=== PATIENT | male | born 1950 | race African-American/Black ===

== ENCOUNTER 2016-10-25 03:49 | Emergency (ER) | payer OTHER ==
[2016-10-25 04:39] VITALS: BMI 28.5
[2016-10-25] MEDS ORDERED: MECLIZINE HCL 25 MG TABLET (FP) PO ONE (05:28)
[2016-10-25] MEDS ORDERED: MECLIZINE HCL 25 MG TABLET (FP) ONE (05:49)
[2016-10-25 06:06] LABS: BASOPHIL 0.3 % (0-2.0); MCH 28.3 pg (25.7-33.7); MCHC 33.9 g/dl (32.0-35.9); MEAN CELL VOLUME 83.5 fl (80-96); MEAN PLT VOLUME 9.1 fl (7.5-11.1); NEUTROPHILS 86.7 % (42.8-82.8); PLATELET COUNT 164 K/MM3 (134-434); RDW 13.1 % (11.9-15.9); WHITE BLOOD COUNT 10.3 K/mm3 (4.0-10.0)
--- NOTE | 2016-10-25 06:17 | PDOC ---
History of Present Illness - General Chief Complaint: Pain Stated Complaint: NECK PAIN, RINGING IN EAR Time Seen by Provider: 10/25/16 05:03 History Source: Patient Exam Limitations: No Limitations - History of Present Illness Initial Comments: 10/25/16 06:07 patient is a 66-year-old male with history of DVT with IVC filter, seizure disorder, small bowel obstruction, appendectomy, L knee orthoscopy, complaining of ringing in left ear since 1 month. He states that one month ago he had ringing in the right ear which was associated w/vertigo, but resolved after about a week. about the same time he developed pain which is 8/10 in his right face and it radiated to his temporal area. He states that he has ringing in his left ear which has not resolved with the medications prescribed to him. He went to ENT, his ears were irrigated and was given antibiotics, however no relief from his symptoms. He denies any chest pain, shortness of breath,fever, chills , nausea, vomiting. States he woke up this morning and felt like he was choking and he is concern about cancer because his brother had the same symptoms and was diagnosed with cancer. PMD:Dr. Arriaga PMHX: as above PSOCHX: neg etoh, ex smoker cig , neg drug. PFamHx: as above ALL: NKDA GENERAL/CONSTITUTIONAL: [No fever or chills. No weakness. No weight change.] HEAD, EYES, EARS, NOSE AND THROAT: [No change in vision. (+) ear pain (-) discharge. No sore throat.] CARDIOVASCULAR: [No chest pain or shortness of breath.] RESPIRATORY: [No cough, wheezing, or hemoptysis.] GASTROINTESTINAL: [No nausea, vomiting, diarrhea or constipation. No rectal bleeding.] GENITOURINARY: [No dysuria, frequency, or change in urination.] MUSCULOSKELETAL: [No joint or muscle swelling or pain. No neck or back pain.] SKIN AND BREASTS: [No rash or easy bruising.] NEUROLOGIC: [No headache, vertigo, loss of consciousness, or loss of sensation.] PSYCHIATRIC: [No depression or anxiety.] ENDOCRINE: [No increased thirst. No abnormal weight change.] HEMATOLOGIC/LYMPHATIC: [No anemia, easy bleeding, or history of blood clots.] ALLERGIC/IMMUNOLOGIC: [No hives or skin allergy. No latex allergy.] GENERAL: [The patient is awake, alert, and fully oriented, in no acute distress. ] HEAD: [Normal with no signs of trauma.] EYES: [Pupils equal, round and reactive to light, extraocular movements intact, sclera anicteric, conjunctiva clear.] ENT: [Ears normal, nares patent, oropharynx clear without exudates, uvula midline no swelling, no TRUCK ASSEMBLER. Moist mucous membranes., dentition intact] NECK: [Normal range of motion, supple without lymphadenopathy, (+) tenderness from the ankle of the jaw to the right neck, mild swelling to the right neck, no JVD, or masses.] LUNGS: [Breath sounds equal, clear to auscultation bilaterally. No wheezes, and no crackles.] HEART: [Regular rate and rhythm, normal S1 and S2 without murmur, rub.] ABDOMEN: [Soft, nontender, normoactive bowel sounds. No guarding, no rebound. No masses.] EXTREMITIES: [Normal range of motion, no edema. No clubbing or cyanosis. No cords, erythema, or tenderness.] NEUROLOGICAL: [Cranial nerves II through XII grossly intact. Normal speech, normal gait.] PSYCH: [Normal mood, normal affect.] SKIN: [Warm, Dry, normal turgor, no rashes or lesions noted.] Past History - Past Medical History Allergies/Adverse Reactions: Allergies Allergy/AdvReac Type Severity Reaction Status Date / Time No Known Allergies Allergy Verified 06/18/16 16:31 Home Medications: Ambulatory Orders Phenytoin Na Extended [Dilantin -] 200 mg PO BID 11/03/14 Primidone 250 mg PO AM 11/03/14 Primidone 500 mg PO HS 11/03/14 Cefdinir [Omnicef -] 300 mg PO BID 10/25/16 Anemia: No Asthma: No Cancer: No Cardiac Disorders: No CVA: No COPD: No CHF: No Dementia: No Diabetes: No GI Disorders: Yes (SBO) Disorders: No HTN: No Hypercholesterolemia: No Liver Disease: No Suicide Attempt (Hx): No Seizures: Yes Thyroid Disease: No - Surgical History Abdominal Surgery: Yes (BOWEL OBSTRUCTION SURGERY 1999) Appendectomy: Yes - Immunization History Immunization Up to Date: Yes - Psycho/Social/Smoking Cessation Hx Anxiety: No Suicidal Ideation: No Smoking Status: Yes Smoking History: Unknown if ever smoked Have you smoked in the past 12 months: No Number of Cigarettes Smoked Daily: 0 If you are a former smoker, when did you quit?: 2007 Hx Alcohol Use: No Drug/Substance Use Hx: No Substance Use Type: None Hx Substance Use Treatment: No *Physical Exam - Vital Signs Last Vital Signs Temp Pulse Resp BP Pulse Ox 99.5 F 102 H 20 161/60 96 10/25/16 04:37 10/25/16 04:37 10/25/16 04:37 10/25/16 04:37 10/25/16 04:37 ED Treatment Course - LABORATORY CBC & Chemistry Diagram: 10/25/16 05:52 10/25/16 05:52 - Medications Given in the ED: ED Medications Discontinued Medications Generic Name Dose Route Start Last Admin Trade Name Freq PRN Reason Stop Dose Admin Meclizine HCl 25 mg 10/25/16 05:28 10/25/16 05:52 Antivert - PO 10/25/16 05:29 25 mg ONCE ONE Administration Medical Decision Making - Medical Decision Making 10/25/16 06:07 patient is a 66-year-old male with history of DVT with IVC filter, seizure disorder, small bowel obstruction, appendectomy, L knee orthoscopy, complaining of ringing in left ear since 1 month, with ringing in right ear that is now resolved but has pain to the left side jaw and neck. will r/o out inflammatory process, crp, esr, cbc, bmp. cta neck and ct head antivert, percocet 2 tab po reassess Endorsed to on coming med level pending CT *DC/Admit/Observation/Transfer Diagnosis at time of Disposition: Clicking tinnitus of both ears, Neck pain on right side
[2016-10-25] MEDS ORDERED: OXYCODONE/APAP 5/325MG COMBO TABLET PO ONE (06:31)
[2016-10-25] MEDS ORDERED: OXYCODONE/APAP 5/325MG COMBO TABLET ONE (06:48)
[2016-10-25 06:57] LABS: C-REACTIVE PROTEIN 1.6 MG/DL (0.00-0.3); CALCIUM 8.9 mg/dL (8.5-10.1); CREATININE 0.9 mg/dL (0.7-1.3)
[2016-10-25 07:48] VITALS: TEMP 98.6
--- NOTE | 2016-10-25 09:51 | PDOC ---
*Physical Exam - Vital Signs Last Vital Signs Temp Pulse Resp BP Pulse Ox 98.6 F 93 H 18 138/88 96 10/25/16 07:44 10/25/16 07:44 10/25/16 07:44 10/25/16 07:44 10/25/16 07:44 - Physical Exam General Appearance: Yes: Nourished HEENT: positive: MARIAN, Normal Voice, TMs Normal, Sinus Tenderness, Other (right side maxillary and soft tissue lateral neck, up to worship region with pain that is throbbing. ). negative: Muffled/Hoarse voice, Pharyngeal Erythema, Tonsillar Exudate, Tonsillar Erythema, Nasal Congestion, TM Bulging, TM Dull, TM Erythema, Excessive drooling Neck: positive: Tender, Decreased range of motion, Tender lateral (right side). negative: Stridor Respiratory/Chest: positive: Lungs Clear Cardiovascular: positive: Regular Rate Gastrointestinal/Abdominal: positive: Normal Bowel Sounds, Flat, Soft Extremity: positive: Normal Inspection Integumentary: positive: Normal Color, Dry, Warm Neurologic: positive: Fully Oriented, Alert ED Treatment Course - LABORATORY CBC & Chemistry Diagram: 10/25/16 05:52 10/25/16 05:52 - ADDITIONAL ORDERS Additional order review: Laboratory Results 10/25/16 05:52 Sodium 139 Potassium 4.3 Chloride 106 Carbon Dioxide 22 Anion Gap 11 BUN 14 D Creatinine 0.9 Random Glucose 105 Calcium 8.9 C-Reactive Protein 1.6 H 10/25/16 05:52 RBC 5.30 MCV 83.5 MCHC 33.9 RDW 13.1 MPV 9.1 Neutrophils % 86.7 H Lymphocytes % 5.2 L D Monocytes % 7.8 Eosinophils % 0.0 D Basophils % 0.3 - Medications Given in the ED: ED Medications Discontinued Medications Generic Name Dose Route Start Last Admin Trade Name Freq PRN Reason Stop Dose Admin Meclizine HCl 25 mg 10/25/16 05:28 10/25/16 05:52 Antivert - PO 10/25/16 05:29 25 mg ONCE ONE Administration Oxycodone/Acetaminophen 2 combo 10/25/16 06:31 10/25/16 06:50 Percocet 5/325 - PO 10/25/16 06:32 2 combo ONCE ONE Administration Medical Decision Making - Medical Decision Making 10/25/16 07:48 I have received report from TONA Daniels regarding this patient. Pt's initial chief complaint: right side head, jaw and neck pain for one month Pt's work up completed prior to sign out: lab work, Pt treatment given from prior staff: percocet and antivert; pain is numbed but ringing in ear remains Pt plan to be completed: plan for CT of soft tissue neck and head with contrast pending. Dispo: pending 10/25/16 10:[address] of the neck. Pt without any significant abcess formations, no compression, no infection process found. CT results discussed with pt and suggest to follow up with ENT and dental TANYA as well as continue ABT and pain medicaions. *DC/Admit/Observation/Transfer Diagnosis at time of Disposition: Clicking tinnitus of both ears, Neck pain on right side - Discharge Dispostion Admit: No - Prescriptions Prescriptions: Tramadol HCl [Ultram -] 50 mg PO Q8H #10 tablet MDD 3 - Referrals Referrals: Rodrigo Arriaga MD [Primary Care Provider] - - Patient Instructions Printed Discharge Instructions: Jaw Pain: It's Not Just Stress Additional Instructions: Discharge instructions 1. Please follow up with your primary physician within the next few days and explain that you have been seen here in the Emergency Room for right side jaw pain. As discussed prior to discharge, please complete the antibiotics that ENT physicians started you on and follow up with them within the week. As discussed prior to discharge, please follow up with your dental team within one week for evaluation of the recent tooth extraction and tooth pain that may be the main issue for the right jaw pain 2. If you experience any worsening of symptoms, such as fever, drainage, signs of infection, please return to the ER 3. Rest, avoid chewing difficult foods. Take pain medications as needed. 4. Drink plenty of water - Post Discharge Activity
[2016-10-25 11:11] VITALS: BP 135/79; PULSE 90
== END 2016-10-25 11:11 | disposition home or self-care (01) ==
LOC: JER 03:49
DX: H93.13 Tinnitus, bilateral (principal); M54.2 Cervicalgia; G40.909 Epilepsy, unspecified, not intractable, without status epilepticus; Z86.718 Personal history of other venous thrombosis and embolism
CPT/HCPCS: 36415; 70450-TC; 70491-TC; 80048; 85025; 85651; 86140; 99283-25

== ENCOUNTER 2018-09-23 16:00 | Emergency (ER) | payer OTHER ==
[2018-09-23 16:07] VITALS: BP 149/72; PULSE 81; TEMP 98.6; BMI 27.9
--- NOTE | 2018-09-23 16:51 | PDOC ---
History of Present Illness - General Chief Complaint: Pain, Acute Stated Complaint: RIGHT KNEEE PAIN Time Seen by Provider: 09/23/18 16:17 History Source: Patient Exam Limitations: No Limitations - History of Present Illness Initial Comments: 09/23/18 16:46 Came with for evaluation of acute on chronic right knee pain. was bowling last Tuesday when his right knee "gave out" and caused a twisting type injury at that time. Since that time has had some intermittent swelling but denies instability. has had knee pain for many years and left knee needed meniscus repair some many years ago after a workman's comp related injury. 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 09/23/18 17:05 Occurred: reports: last week Severity: reports: mild Pain Location: reports: lower extremity (right knee ) Method of Injury: Yes: fall Loss of Consciousness: no loss of consciousness Associated Symptoms (Fall): denies symptoms Past History - Travel Traveled outside of the country in the last 30 days: No Close contact w/someone who was outside of country & ill: No - Past Medical History Allergies/Adverse Reactions: Allergies Allergy/AdvReac Type Severity Reaction Status Date / Time No Known Allergies Allergy Verified 09/23/18 16:03 Home Medications: Ambulatory Orders Phenytoin Na Extended [Dilantin -] 200 mg PO BID 11/03/14 Primidone 250 mg PO AM 11/03/14 Primidone 500 mg PO HS 11/03/14 Anemia: No Asthma: No Cancer: No Cardiac Disorders: No CVA: No COPD: No CHF: No Dementia: No Diabetes: No GI Disorders: Yes (SBO) Disorders: No HTN: No Hypercholesterolemia: No Liver Disease: No Seizures: Yes Thyroid Disease: No - Surgical History Abdominal Surgery: Yes (BOWEL OBSTRUCTION SURGERY 1999) Appendectomy: Yes - Immunization History Immunization Up to Date: Yes - Suicide/Smoking/Psychosocial Hx Smoking Status: Yes Smoking History: Never smoked Have you smoked in the past 12 months: No Number of Cigarettes Smoked Daily: 0 If you are a former smoker, when did you quit?: 2007 Hx Alcohol Use: No Drug/Substance Use Hx: No Substance Use Type: None Hx Substance Use Treatment: No Review of Systems - Review of Systems Able to Perform ROS?: Yes Is the patient limited Togolese proficient: Yes Constitutional: Yes: Symptoms Reported, See HPI HEENTM: Yes: See HPI. No: Symptoms Reported Respiratory: No: Symptoms reported ABD/GI: No: Symptoms Reported Musculoskeletal: Yes: Symptoms Reported, See HPI, Joint Pain (with pre-tibial pain ), Joint Swelling, Joint Stiffness (right knee ) Integumentary: No: Symptoms Reported Neurological: Yes: Symptoms reported All Other Systems: Reviewed and Negative *Physical Exam - Vital Signs Last Vital Signs Temp Pulse Resp BP Pulse Ox 98.6 F 81 16 149/72 99 09/23/18 16:03 09/23/18 16:03 09/23/18 16:03 09/23/18 16:03 09/23/18 16:03 - Physical Exam General Appearance: Yes: Nourished, Appropriately Dressed, Apparent Distress HEENT: positive: MARIAN, Normal ENT Inspection, TMs Normal, Pharynx Normal Neck: positive: Supple. negative: Tender Respiratory/Chest: positive: Lungs Clear Gastrointestinal/Abdominal: positive: Soft. negative: Tender Extremity: positive: Normal Capillary Refill, Normal Inspection, Normal Range of Motion (with some crepitus with flexion, no ballottemeis mobile without crepitoff. Neurovascular intact to foot, no swelling or tenderness to calf or evidence of), Tender Integumentary: positive: Normal Color, Dry, Warm Neurologic: positive: frozen food selector II-XII NML intact, Fully Oriented, Alert, Normal Response, Motor Strength 5/5, Abnormal Cranial NS Moderate Sedation - Procedure Monitoring Vital Signs: Procedure Monitoring Vital Signs Temperature 98.6 F 09/23/18 16:03 Pulse Rate 81 09/23/18 16:03 Respiratory Rate 16 09/23/18 16:03 Blood Pressure 149/72 09/23/18 16:03 O2 Sat by Pulse Oximetry (%) 99 09/23/18 16:03 Progress Note - Progress Note Progress Note: Acute on chronic right knee pain, will recommend at orthopedist for further evaluation *DC/Admit/Observation/Transfer Diagnosis at time of Disposition: Right knee sprain Qualifiers: Encounter type: initial encounter Involved ligament of knee: unspecified ligament Qualified Code(s): S83.91XA - Sprain of unspecified site of right knee , initial encounter - Discharge Dispostion Disposition: HOME Condition at time of disposition: Stable Decision to Admit order: No - Referrals Referrals: Rodrigo Arriaga MD [Primary Care Provider] - Miguel Chua DO [Staff Physician] - - Patient Instructions Printed Discharge Instructions: DI for Knee Sprain Additional Instructions: Rest, ice to area on and off for 15 minutes 4-6 times a day Avoid heavy lifting or exercise until pain and swelling is resolved or until further directed Keep area highly elevated to reduce swelling Use splints/Andrés wrap as directed Followup with orthopedist in one to 2 days if not improving, if significantly improved may wait one week for followup with orthopedist May use ibuprofen 2-200 mg tablets every 6 hours as needed for pain - Post Discharge Activity
== END 2018-09-23 17:23 | disposition home or self-care (01) ==
LOC: JERFT 16:00
DX: S83.8X1A Sprain of other specified parts of right knee, initial encounter (principal); X50.1XXA Overexertion from prolonged static or awkward postures, initial encounter; Y93.54 Activity, bowling; Y92.39 Other specified sports and athletic area as the place of occurrence of the external cause; Y99.8 Other external cause status; Z86.69 Personal history of other diseases of the nervous system and sense organs
CPT/HCPCS: 99281-25

== ENCOUNTER 2019-03-26 23:30 | Emergency (ER) | payer OTHER ==
[2019-03-26 23:35] VITALS: BMI 28.5
[2019-03-27] MEDS ORDERED: ACETAMINOPHEN 500 MG TABLET (FP) PO ONE (02:20)
[2019-03-27] MEDS ORDERED: DIPHTH,PERTUSS(ACELL),TET 0.5 ML DISP.SYRIN IM ONE ×2 (02:20→03:16)
[2019-03-27] MEDS ORDERED: DIPHTH,PERTUSS(ACELL),TET VAC 0.5 ML VIAL IM ONE (02:22)
--- NOTE | 2019-03-27 02:43 | PDOC ---
History of Present Illness - General Chief Complaint: Injury Stated Complaint: INJURY (RT HAND) Time Seen by Provider: 03/27/19 02:18 - History of Present Illness Initial Comments: 03/27/19 03:08 68yo M hx epilepsy presents from home c/o injury to L 2nd digit. Pt was drilling plexiglass and drilled through and through the finger tip of his L 2nd digit, from the palmar side out the fingernail. Bleeding stopped with pressure, pt does not believe any foreign objects entered. Endorses pain; did not take any pain medications. Denies numbness/tingling, dizziness, other injuries. Unknown last tetanus. PCP - Dr Arriaga Past History - Past Medical History Allergies/Adverse Reactions: Allergies Allergy/AdvReac Type Severity Reaction Status Date / Time No Known Allergies Allergy Verified 03/26/19 23:36 Home Medications: Ambulatory Orders Phenytoin Na Extended [Dilantin -] 200 mg PO BID 11/03/14 Amoxicillin/Potassium Clav [Augmentin 875-125 Tablet] 1 each PO BID 5 Days #10 tablet 03/27/19 Phenobarbital 250 mg PO AM 03/27/19 Phenobarbital 500 mg PO HS 03/27/19 Anemia: No Asthma: No Cancer: No Cardiac Disorders: No CVA: No COPD: No CHF: No Dementia: No Diabetes: No GI Disorders: Yes (SBO) Disorders: No HTN: No Hypercholesterolemia: No Liver Disease: No Seizures: Yes Thyroid Disease: No - Surgical History Abdominal Surgery: Yes (BOWEL OBSTRUCTION) Appendectomy: Yes Orthopedic Surgery: Yes (L KNEE) - Immunization History Immunization Up to Date: No - Suicide/Smoking/Psychosocial Hx Smoking Status: Yes Smoking History: Never smoked Have you smoked in the past 12 months: No Number of Cigarettes Smoked Daily: 0 If you are a former smoker, when did you quit?: 2009 Hx Alcohol Use: No Drug/Substance Use Hx: No Substance Use Type: None Hx Substance Use Treatment: No Review of Systems - Review of Systems Comments:: 03/27/19 05:42 Constitutional: Negative for chills, fever, fatigue. HENT: Negative for sore throat, rhinorrhea, congestion. Eyes: Negative for visual disturbance. Respiratory: Negative for shortness of breath, cough, and wheezing. Cardiovascular: Negative for chest pain, palpitations, and leg swelling. Gastrointestinal: Negative for abdominal pain, blood in stool, constipation, diarrhea, nausea, and vomiting. Genitourinary: Negative for dysuria, flank pain, and hematuria. Musculoskeletal: Positive for L 2nd finger puncture injury. Negative for myalgias, back pain, and neck pain. Skin: Negative for rash. Neurological: Negative for light-headedness, dizziness, syncope, weakness, numbness and headaches. Psychiatric/Behavioral: Negative for behavioral problems and confusion. *Physical Exam - Vital Signs Last Vital Signs Temp Pulse Resp BP Pulse Ox 98.3 F 96 H 18 151/76 97 03/26/19 23:32 03/26/19 23:32 03/26/19 23:32 03/26/19 23:32 03/26/19 23:32 - Physical Exam Comments: 03/27/19 05:40 Gen: Alert, NAD, comfortable-appearing. HEENT: PERRL, EOMI, MMM, NCAT. No conjunctival pallor. Sclera are non-icteric. CV: Regular rate and rhythm. No murmurs, rubs, or gallops. PULM: No resp distress. CTAB, no wheezes, rales, or rhonchi. ABD: soft, NT/ND, no rebound tenderness or guarding, no CVA tenderness. BACK: No TTP of c/t/l-spine. No step-offs or deformities. MSK: No bony deformities. 2+ pulses in all extremities. L 2nd digit: 1mm puncture wound on palmar fingertip and on fingernail (appears to be directly through), nonbleeding, no pus or drainage, no foreign objects visualized. No erythema or warmth. Mild TTP. No bony deformity. Sensation intact to light touch. <2sec cap refill. Full flexion and extension of all joints. NEURO: AAOx3. PERRL. No gross CN deficits. Strength and sensation grossly intact throughout. EXTREMITIES: No cyanosis. No clubbing. No edema. No calf tenderness. PSYCH: Normal mood and thought pattern. SKIN: Warm and dry. Normal capillary refill. No rashes. No jaundice. ED Treatment Course - RADIOLOGY Radiology Studies Ordered: Category Date Time Status FINGER(S) LEFT [RAD] Stat Radiology 03/27/19 02:19 Ordered Medical Decision Making - Medical Decision Making 03/27/19 03:10 68yo M hx epilepsy presents from home with puncture to distal L 2nd digit through fingernail from drill. 1mm puncture wound on palmar fingertip and fingernail. Hemodynamically stable, minimal pain, neurovascularly intact. Unknown last tetanus. -Tylenol for pain -Tetanus -XR 2nd digit to r/o fx/open fx -Augmentin -Dispo: d/c home w/PCP f/u and Augmentin x5 days XR read: no fx seen. Pt feeling better s/p tylenol. 1st does Augmentin given here. Wound soaked in betadine and water. Gauze placed. Will dc home with supportive treatment and Augmentin. Return precautions given. Pt understands all dc instructions and all questions were answered. *DC/Admit/Observation/Transfer Diagnosis at time of Disposition: Puncture wound - Discharge Dispostion Disposition: HOME Condition at time of disposition: Improved Decision to Admit order: No - Prescriptions Prescriptions: Amoxicillin/Potassium Clav [Augmentin 875-125 Tablet] 1 each PO BID 5 Days #10 tablet - Referrals Referrals: Rodrigo Arriaga MD [Primary Care Provider] - - Patient Instructions Printed Discharge Instructions: DI for Puncture Wound Additional Instructions: You have been seen in the Emergency Department for your finger puncture wound. Your X-Ray shows no fracture or foreign objects. Your wound has been cleaned and wrapped. If you experience pain, you can take Tylenol or Ibuprofen as directed on the medication bottle, but do not exceed 3g of Ibuprofen or 4g of Tylenol a day. We have prescribed you an antibiotic, Augmentin - take it twice a day for 5 days as instructed on the bottle. Keep the wound clean and dry. Follow-up with your primary care doctor within 1 week. Return to the ED immediately if you experience fever, worsening pain not controlled by over the counter medications, redness or burning or tingling or pus around the wound, or any other new or worsening symptom. - Post Discharge Activity
--- NOTE | 2019-03-27 02:45 | PDOC ---
Attending Attestation - Resident Resident Name: Mounika Dennis - ED Attending Attestation I have performed the following: I have examined & evaluated the patient, The case was reviewed & discussed with the resident, I agree w/resident's findings & plan - HPI HPI: 03/27/19 03:51 68-year-old male with left second finger pain after a drill passed through it - Physicial Exam PE: 03/27/19 03:57 GENERAL: Awake, in no acute distress HEAD: No signs of trauma EYES: ENT:clear without exudates. Moist mucosa NECK: Normal ROM, LUNGS:. Normal work of breathing. HEART: Regular rate and rhythm, ABDOMEN: Soft, nondistended CHEST WALL: BACK: No midline tenderness. EXTREMITIES:. Through and through puncture wound involving the left second distal phalanx, exit is through the nail bed, capillary refill intact NEUROLOGICAL: Alert, SKIN: Warm, Dry - Medical Decision Making 03/27/19 03:57 68-year-old male with left finger through and through puncture wound X-ray shows no obvious fracture Plan for tetanus update when necessary, wound cleansed with Betadine and Augmentin
[2019-03-27] MEDS ORDERED: ACETAMINOPHEN 325 MG TABLET (FP) ONE (03:16)
[2019-03-27] MEDS ORDERED: AMOX TR/POT CLAV 875MG/125MG TABLETS (FP) PO ONE (03:28)
[2019-03-27] MEDS ORDERED: AMOX TR/POT CLAV 875MG/125MG TABLETS (FP) ONE (04:02)
[2019-03-27 04:11] VITALS: BP 139/85; PULSE 79; TEMP 97.9
== END 2019-03-27 04:11 | disposition home or self-care (01) ==
LOC: JER 23:30
PROC: 3E0234Z Introduction of Serum, Toxoid and Vaccine into Muscle, Percutaneous Approach (ICD-10-PCS; principal; 2019-03-26)
DX: S61.331A Puncture wound without foreign body of left index finger with damage to nail, initial encounter (principal); J43.9 Emphysema, unspecified; W45.8XXA Other foreign body or object entering through skin, initial encounter; Y93.89 Activity, other specified; Y92.009 Unspecified place in unspecified non-institutional (private) residence as the place of occurrence of the external cause
CPT/HCPCS: 73140-TC-LT-FY; 90471; 99282-25

== ENCOUNTER 2019-07-04 22:42 | Inpatient (IN) | payer OTHER ==
--- NOTE | 2019-07-04 23:16 | PDOC ---
History of Present Illness - General Chief Complaint: Pain, Acute Stated Complaint: ABD/PAIN Time Seen by Provider: 07/04/19 23:16 History Source: Patient Exam Limitations: No Limitations - History of Present Illness Initial Comments: 69 year old male with PMH seizure disorder, RLE DVT (s/p IVC filter 2/2 seizure medication), venous insufficiency, diverticulitis, appendectomy, multiple SBO, abdominal adhesion removal presented to ED for LLQ pain x1 day. Pt reported his pain is constant, nonradiating, no alleviating or aggravating factors. Pt admitted to normal bowel movement this AM, denied blood, denied straining. Pt denied fever, vomiting, chills, abdominal distension, blood in stool, dysuria. Pt reported >10 years ago he had the adhesion surgery and since then he has not had an SBO, but todays symptoms feel similar to prior. Past History - Past Medical History Allergies/Adverse Reactions: Allergies Allergy/AdvReac Type Severity Reaction Status Date / Time No Known Allergies Allergy Verified 07/04/19 22:51 Home Medications: Ambulatory Orders Phenytoin Na Extended [Dilantin -] 200 mg PO BID 11/03/14 Phenobarbital 250 mg PO AM 03/27/19 Phenobarbital 500 mg PO HS 03/27/19 Levetiracetam 500 mg PO DAILY 07/05/19 GI Disorders: Yes (SBO) Seizures: Yes - Surgical History Abdominal Surgery: Yes (BOWEL OBSTRUCTION) Appendectomy: Yes Orthopedic Surgery: Yes (L KNEE) - Immunization History Immunization Up to Date: No - Psycho Social/Smoking Cessation Hx Smoking Status: Yes Smoking History: Never smoked Have you smoked in the past 12 months: No Number of Cigarettes Smoked Daily: 0 If you are a former smoker, when did you quit?: 2009 Information on smoking cessation initiated: No Hx Alcohol Use: No Drug/Substance Use Hx: No Substance Use Type: None Hx Substance Use Treatment: No Review of Systems - Review of Systems Able to Perform ROS?: Yes Comments:: ROS General: denied fever, chills, generalized weakness. HEENT: denied sore throat, rhinorrhea, ear pain. Cardiovascular: denied chest pain, palpitations, syncope, diaphoresis. Respiratory: denied shortness of breath, cough, sputum production, hemoptysis. Gastrointestinal: admitted to abdominal pain. denied nausea, vomiting, diarrhea , constipation, blood in stool. Genitourinary: denied dysuria, increased urinary frequency, hematuria, urinary incontinence, flank pain. Back: denied back pain. Musculoskeletal: denied joint pain, muscle pain, joint swelling. Neurological: denied headache, dizziness, numbness, tingling, weakness. Integumentary: denied rash, laceration, abrasion. Hematologic/Lymphatic: denied bruising or bleeding. PE Constitutional: Well-nourished, Well-developed, appearing stated age. HEENT: head is normocephalic, atraumatic. EOMI. PERRLA. Neck: supple. Full ROM. Cardiovascular: regular heart rhythm. no murmurs. no pericardial friction rub. Respiratory: clear to auscultation bilaterally. no crackles, rhonchi or wheezing. no stridor. Gastrointestinal: soft. mild distension. decreased bowel sounds. tenderness to palpation of LLQ. no rebound, guarding, masses. Rectal: hemorrhoids. good rectal tone. soft stool in vault. Extremities: peripheral pulses intact. no lower extremity edema. Neurological: CN 2-12 grossly intact. moves all four extremities. Psych: awake, alert, oriented x3. follows commands. answers questions appropriately. *Physical Exam - Vital Signs Last Vital Signs Temp Pulse Resp BP Pulse Ox 97.9 F 98 H 20 137/76 96 07/04/19 22:51 07/04/19 22:51 07/04/19 22:51 07/04/19 22:51 07/04/19 22:51 ED Treatment Course - LABORATORY CBC & Chemistry Diagram: 07/05/19 00:29 07/05/19 01:07 Medical Decision Making - Medical Decision Making 69 year old male with above PMH presented to ED for LLQ pain x1 day. Initial Vital Signs Temp Pulse Resp BP Pulse Ox 97.9 F 98 H 20 137/76 96 07/04/19 22:51 07/04/19 22:51 07/04/19 22:51 07/04/19 22:51 07/04/19 22:51 Afebrile. No tachycardia. No tachypnea. Mild hypertension. No hypoxia on room air. Labs ordered: CBC, CMP, mag, lactic acid, lipase, coags, AED level Imaging ordered: CT abdomen/pelvis Medications ordered: normal saline bolus 1000 cc once, tylenol IV EKG performed at 0101: rate 81, regular rhythm, normal axis, normal intervals, no acute ST changes. 07/05/19 01:57 CBC WBC 9.3 K/mm3 (4.0-10.0) 07/05/19 00:29 RBC 5.61 M/mm3 (4.00-5.60) H 07/05/19 00:29 Hgb 15.8 GM/dL (11.7-16.9) 07/05/19: Hct 48.1 % (35.4-49) 07/05/19:29 MCV 85.7 fl (80-96) 07/05/19 00:29 MCH 28.2 pg (25.7-33.7) 07/05/19: MCHC 32.9 g/dl (32.0-35.9) 07/05/19: RDW 13.9 % (11.9-15.9) 07/05/19: MPV 9.4 fl (7.5-11.1) 07/05/19 00:29 Absolute Neuts (auto) 7.5 K/mm3 (1.5-8.0) 07/05/19 00:29 Neutrophils % 80.2 % (42.8-82.8) 07/05/19 00: Lymphocytes % 9.6 % (8-40) D 07/05/19: Monocytes % 9.8 % (3.8-10.2) 07/05/19 00:29 Eosinophils % 0.1 % (0-4.5) D 07/05/19:29 Basophils % 0.3 % (0-2.0) 07/05/19 00:29 Nucleated RBC % 0 % (0-0) 07/05/19 00:29 No leukocytosis. No anemia. Lab reported PLT clumped and unable to be calculated. Urine Test Results Urine Color Yellow 07/05/19 00:53 Urine Appearance Clear 07/05/19 00:53 Urine pH 5.5 (5.0-8.0) 07/05/19 00:53 Ur Specific [place] 1.023 (1.010-1.035) 07/05/19 00:53 Urine Protein Negative (NEGATIVE) 07/05/19 00:53 Urine Glucose (UA) Negative (NEGATIVE) 07/05/19 00:53 Urine Ketones Trace (NEGATIVE) H 07/05/19 00:53 Urine Blood Negative (NEGATIVE) 07/05/19 00:53 Urine Nitrite Negative (NEGATIVE) 07/05/19 00:53 Urine Bilirubin Negative (NEGATIVE) 07/05/19 00:53 Ur Leukocyte Esterase Negative (NEGATIVE) 07/05/19 00:53 Negative for UTI. Negative for hematuria. Negative for proteinuria. CMP Sodium 138 mmol/L (136-145) 07/05/19 01:07 Potassium 4.1 mmol/L (3.5-5.1) 07/05/19 01:07 Chloride 107 mmol/L (98-107) 07/05/19 01:07 Carbon Dioxide 23 mmol/L (21-32) 07/05/19 01:07 Anion Gap 8 MMOL/L (8-16) 07/05/19 01:07 BUN 16.3 mg/dL (7-18) 07/05/19 01:07 Creatinine 0.9 mg/dL (0.55-1.3) 07/05/19 01:07 Est GFR (CKD-EPI)AfAm 99.24 07/05/19 01:07 Est GFR (CKD-EPI)NonAf 85.63 07/05/19 01:07 Random Glucose 120 mg/dL (74-106) H 07/05/19 01:07 Lactic Acid 0.9 mmol/L (0.4-2.0) 07/05/19 00:29 Calcium 8.3 mg/dL (8.5-10.1) L 07/05/19 01:07 Magnesium 2.2 mg/dL (1.8-2.4) 07/05/19 01:07 Total Bilirubin 0.4 mg/dL (0.2-1) 07/05/19 01:07 AST 19 U/L (15-37) 07/05/19 01:07 ALT 25 U/L (13-61) 07/05/19 01:07 Alkaline Phosphatase 148 U/L (45-117) H 07/05/19 01:07 Creatine Kinase 80 U/L (26-308) 07/05/19 01:07 Troponin I < 0.02 ng/ml (0.00-0.05) 07/05/19 01:07 Total Protein 6.9 g/dl (6.4-8.2) 07/05/19 01:07 Albumin 3.7 g/dl (3.4-5.0) 07/05/19 01:07 Lipase 36 U/L (73-393) L 07/05/19 01:07 No electrolyte abnormalities. No ZONIA. No transaminitis. Troponin undetectable. Lipase wnl. No lactic acidosis. 07/05/19 04:57 Radiology called to report partial SBO around adhesion site. right kidney 2.4 cm lesion, cyst vs malignancy, recommend F/U CT with IV contrast. hiatal hernia. Pt to be admitted for partial bowel obstruction. 07/05/19 05:19 Patient Name: MORGAN GOYAL THIS IS A PRELIMINARY REPORT FROM [facility]TRY MACHINE OPERATOR DATE OF SERVICE: 2019-07-05 03:37:09 IMAGES: 521 EXAM: CT ABDOMEN WITHOUT CONTRAST AND CT PELVIS W/O CONTR HISTORY: 69-Year-Old Male With Previous History Of Appendectomy Presents With With Left Lower Quadrant Abdominal Pain And Previous History Of History Of a Small Bowel Obstruction. COMPARISON: None. FINDINGS: Lack of intravenous contrast limits this exam. Lack of oral contrast limits this exam. Mild basilar atelectasis scarring or pneumonia. Mild cardiomegaly with calcified coronary artery arteriosclerosis. Mild hepatomegaly. Noncontrast evaluation gallbladder pancreas spleen appear unremarkable. Right adrenal nonspecific 2 x 2 x 1 cm nodule with a nonspecific Hounsfield unit density measurement of 17 may be benign or malignant on axial image 53 coronal image 49. Left adrenal 1.8 x 1.6 x 1.4 cm nodule on axial image 51 and coronal image 54 with a Hounsfield unit density measurement of 7 consistent with a benign adrenal adenoma. In the midportion of the right kidney renal cortex there is a nonspecific hyperdense 2.4 x 2 x 2 cm mass on axial image 69 coronal image 36 and sagittal image 42 suspicious for complex hyperdense proteinaceous benign or malignant cystic mass. No nephrolithiasis or hydronephrosis. Filter in inferior vena cava. The inferior vena cava upstream to the filter is diminutive and may be atrophic. Moderate calcified arteriosclerosis of the abdominal and pelvic arterial vasculature. Small hiatal hernia. Mild nonspecific 1 cm circumferential lower esophageal wall thickening may be due to acute esophagitis and chronic reflux esophagitis or Hawk's esophagitis cannot be excluded. Noncontrast evaluation stomach and proximal small bowel appear unremarkable. Evidence of anterior abdominal hernia repair material with no intervening fat between the hernia repair material and anterior intra-abdominal bowel loops may be due to adhesions. Moderately abnormally dilated thick-walled loops of small bowel in the right lower quadrant most likely due to infectious or inflammatory enteritis with associated ileus partial small bowel obstruction transition zone anastomotic suture in the right lower quadrant may be due to adhesions. The terminal ileum is decompressed. The appendix is surgically absent and not identified. Diverticulosis. Bladder and prostate appear unremarkable. Mild right convex lumbar scoliosis. Moderate degenerative disc disease in lower lumbar spine. Moderate degenerative joint disease of the lower lumbar facets. Midline anterior abdominal and pelvic subcutaneous scarring. IMPRESSION: Evidence of anterior abdominal hernia repair material with no intervening fat between the hernia repair material and anterior intra-abdominal bowel loops may be due to adhesions. Moderately abnormally dilated thick-walled loops of small bowel in the right lower quadrant most likely due to infectious or inflammatory enteritis with associated ileus partial small bowel obstruction transition zone anastomotic suture in the right lower quadrant may be due to adhesions. If clinically indicated recommend correlation with a follow-up CT Scan Of The Abdomen And Pelvis With Oral Contrast And With IV contrast. Right kidney renal cortex nonspecific hyperdense 2.4 cm mass suspicious for complex hyperdense proteinaceous benign or malignant cystic mass. Mild basilar atelectasis scarring or pneumonia. Right adrenal nonspecific 2 cm nodule may be benign or malignant. If clinically indicated follow-up outpatient MRI Abdomen Adrenal Gland Protocol may be needed. A verbal report of the abnormal results were discussed with Dr. Marin by Dr. Daily 4:56 AM ET July 05, 2019. Patient This CT exam was performed using one or more of the following dose reduction techniques: automated exposure control, adjustment of the mA and/or kV according to patient size, use of iterative reconstruction technique. One or more of the following dose reduction techniques were used: automated exposure control, adjustment of the mA and/or kV according to patient size, use of iterative reconstructive technique. THIS DOCUMENT HAS BEEN ELECTRONICALLY SIGNED Alex Daily MD 07/05/2019 05:09 [employer] Please call Imaging Pre School Manager [phone] with questions. Alex Daily MD Clinicians - Please contact Imaging Pre School Manager with further questions at [phone] Patients - Please contact your Ordering Provider with questions. 07/05/19 05:30 Sign out given to IM resident over the phone. Pt to be admitted under Dr. Carreon' care. Discharge - Discharge Information Problems reviewed: Yes Clinical Impression/Diagnosis: Partial small bowel obstruction, Kidney mass - Admission Yes - Follow up/Referral - Patient Discharge Instructions - Post Discharge Activity
[2019-07-04] MEDS ORDERED: SODIUM CHLORIDE 1,000 ML IV STA (23:30)
[2019-07-04] MEDS ORDERED: ACETAMINOPHEN 1000 MG/100 ML VIAL (NON FORMULARY) IVPB ONE (23:30)
[2019-07-04] MEDS ORDERED: ACETAMINOPHEN INJECTION 100 ML IVPB ONE (23:38)
--- NOTE | 2019-07-05 00:02 | PDOC ---
Attending Attestation - Resident Resident Name: TaniaAshleya - ED Attending Attestation I have performed the following: I have examined & evaluated the patient, The case was reviewed & discussed with the resident, I agree w/resident's findings & plan - HPI HPI: 07/05/19 04:59 see resident hpi - Physicial Exam PE: 07/05/19 04:59 agree with resident exam - Medical Decision Making 07/05/19 04:59 69-year-old male with abdominal pain CT scan consistent with partial SBO Plan for admission to medical service, surgical consultation
[2019-07-05] MEDS ORDERED: morphine CARPU-JECT 4 MG/1 ML DISP.SYRIN IVPUSH ONE (01:09)
[2019-07-05 01:14] LABS: INR 1.22 (0.83-1.09); PROTHROMBIN TIME (PATIENT) 14.4 SEC (9.7-13.0)
[2019-07-05] MEDS ORDERED: MORPHINE SULFATE 2 MG/ML VIAL ONE (01:32)
[2019-07-05 01:36] LABS: BASO % 0.3 % (0-2.0); EOS % 0.1 % (0-4.5); HEMATOCRIT 48.1 % (35.4-49); HEMOGLOBIN 15.8 GM/dL (11.7-16.9); LYMPH % 9.6 % (8-40); MCH 28.2 pg (25.7-33.7); MCHC 32.9 g/dl (32.0-35.9); MEAN CELL VOLUME 85.7 fl (80-96); MEAN PLT VOLUME 9.4 fl (7.5-11.1); MONO % 9.8 % (3.8-10.2); NEUT % 80.2 % (42.8-82.8); RBC 5.61 M/mm3 (4.00-5.60); RDW 13.9 % (11.9-15.9); WHITE BLOOD COUNT 9.3 K/mm3 (4.0-10.0)
[2019-07-05 01:49] LABS: PH,URINE 5.5 (5.0-8.0); URINE APPEARANCE CLEAR; URINE BILIRUBIN NEGATIVE (NEGATIVE); URINE COLOR YELLOW; URINE GLUCOSE (UA) NEGATIVE (NEGATIVE); URINE KETONE TRACE (NEGATIVE); URINE LEUK ESTERASE NEGATIVE (NEGATIVE); URINE NITRITE NEGATIVE (NEGATIVE); URINE PROTEIN NEGATIVE (NEGATIVE)
[2019-07-05 02:01] LABS: ALBUMIN 3.7 g/dl (3.4-5.0); ALK PHOS 148 U/L (45-117); ANION GAP 8 MMOL/L (8-16); BILIRUBIN,TOTAL 0.4 mg/dL (0.2-1); BLOOD UREA NITROGEN 16.3 mg/dL (7-18); CALCIUM 8.3 mg/dL (8.5-10.1); CHLORIDE 107 mmol/L (98-107); CO2 23 mmol/L (21-32); CREATININE 0.9 mg/dL (0.55-1.3); GLUCOSE,RANDOM 120 mg/dL (74-106); LIPASE 36 U/L (73-393); MAGNESIUM 2.2 mg/dL (1.8-2.4); POTASSIUM 4.1 mmol/L (3.5-5.1); SGOT/AST 19 U/L (15-37); SGPT/ALT 25 U/L (13-61); SODIUM 138 mmol/L (136-145); TOT PROT 6.9 g/dl (6.4-8.2)
--- NOTE | 2019-07-05 05:28 | PN ---
Teaching Attending Note Name of Resident: Barbara Shook ATTENDING PHYSICIAN STATEMENT I saw and evaluated the patient. I reviewed the resident's note and discussed the case with the resident. I agree with the resident's findings and plan as documented. SUBJECTIVE: 69 year old male with PMH seizure disorder, RLE DVT (s/p IVC filter), venous insufficiency, diverticulitis, appendectomy, multiple SBO, abdominal adhesion removal c/o LLQ abdominal pain x1 day. Pt reported his pain is constant, nonradiating, no alleviating or aggravating factors. Pt admitted to normal bowel movement one day ago OBJECTIVE: Last Vital Signs Temp Pulse Resp BP Pulse Ox 98.3 F 84 16 126/56 L 95 07/04/19 23:10 07/04/19 23:10 07/04/19 23:10 07/04/19 23:10 07/04/19 23:10 GENERAL: Well developed, well nourished. Awake and alert. No acute distress. HEENT: Normocephalic, atraumatic. PERRLA, EOMI. No conjunctival pallor. Sclera are non- icteric. Moist mucous membranes. Oropharynx is clear. NECK: Supple. Full ROM. No JVD. Carotid pulses 2+ and symmetric, without bruits. No thyromegaly. No lymphadenopathy. CARDIOVASCULAR: Regular rate and rhythm. No murmurs, rubs, or gallops. Distal pulses are 2+ and symmetric. PULMONARY: No evidence of respiratory distress. Lungs clear to auscultation bilaterally. No wheezing, rales or rhonchi. ABDOMINAL: Soft. Mild mid abdominal tenderness.Large scar noted MUSCULOSKELETAL Normal range of motion at all joints. No bony deformities or tenderness. No CVA tenderness. EXTREMITIES: No cyanosis. No clubbing. No edema. No calf tenderness. SKIN: Warm and dry. Normal capillary refill. No rashes. No jaundice. PSYCHIATRIC: Cooperative. Good eye contact. Appropriate mood and affect. Abnormal Lab Results 07/05/19 07/05/19 07/05/19 00:29 00:53 00:53 RBC 5.61 H PT with INR 14.40 H INR 1.22 H Random Glucose Calcium Alkaline Phosphatase Lipase Urine Ketones Trace H 07/05/19 01:07 RBC PT with INR INR Random Glucose 120 H Calcium 8.3 L Alkaline Phosphatase 148 H Lipase 36 L Urine Ketones Imaging reviewed ct of abdomen/pelvis Evidence of anterior abdominal hernia repair material with no intervening fat between the hernia repair material and anterior intra-abdominal bowel loops may be due to adhesions. Moderately abnormally dilated thick-walled loops of small bowel in the right lower quadrant most likely due to infectious or inflammatory enteritis with associated ileus partial small bowel obstruction transition zone anastomotic suture in the right lower quadrant may be due to adhesions. If clinically indicated recommend correlation with a follow-up CT Scan Of The Abdomen And Pelvis With Oral Contrast And With IV contrast. Right kidney renal cortex nonspecific hyperdense 2.4 cm mass suspicious for complex hyperdense proteinaceous benign or malignant cystic mass. Mild basilar atelectasis scarring or pneumonia. Right adrenal nonspecific 2 cm nodule may be benign or malignant. ASSESSMENT AND PLAN: 69-year-old male with acute onset of abdominal pain found to have ileus, partial small bowel obstruction. Adhesions may be the culprit of SBO this case, Especially with history of multiple SBO's in the past and had adhesions lysis. Finding of incidental right adrenal nodule. MedSurg N.p.o. IV fluid hydration NG tube with intermittent decompression Follow-up official abdominal CT read Morphine IV as needed for pain control Monitor electrolytes closely and correct PRN Zofran IV as needed if nausea Surgery evaluation Heparin subcu for DVT prophylaxis Outpatient work-up for incidental 2.4 right renal cortex nodule
--- NOTE | 2019-07-05 06:03 | HP ---
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 According to patient, the pain is similar to his previous SBO symptoms. He describes the pain as sharp, constant, nonradiating, with no alleviating or aggravating factors. He denies any associated fever, chills, nausea, vomiting, or change in her BM or appetite. Per patient, he had a soft non bloody bowel movement yesterday morning around 9:30 am and has not passed gas or had a bowel movement since. ER course was notable for: (1) CBC and CMP only remarkable for an elevated RBC 5.9 and BG 120. PT/INR 14.4 , 1.22 (2) Neg UA, CT abdomen and pelvis partial SBO around adhesion site. right kidney 2.4 cm lesion, cyst vs malignancy, 2 cm adrenal lesion. recommend F/U CT with IV contrast. hiatal hernia. (3) Ofirmev, morphine, 1L bolus NS Recent Travel: none PAST MEDICAL HISTORY: as above PAST SURGICAL HISTORY: as above Social History: Smokinppd for 43 yrs but quit 8 yrs ago Alcohol: denies Drugs: denies Allergies No Known Allergies Allergy (Verified 07/04/19 22:51) HOME MEDICATIONS: Home Medications Medication Instructions Recorded Phenytoin Na Extended [Dilantin -] 200 mg PO BID 11/03/14 Phenobarbital 250 mg PO AM 03/27/19 Phenobarbital 500 mg PO HS 03/27/19 Levetiracetam 500 mg PO DAILY 07/05/19 REVIEW OF SYSTEMS CONSTITUTIONAL: Absent: fever, chills, diaphoresis, generalized weakness, malaise, loss of appetite, weight change HEENT: Absent: rhinorrhea, nasal congestion, throat pain, throat swelling, difficulty swallowing, mouth swelling, ear pain, eye pain, visual changes CARDIOVASCULAR: Absent: chest pain, syncope, palpitations, irregular heart rate, lightheadedness , peripheral edema RESPIRATORY: Absent: cough, shortness of breath, dyspnea with exertion, orthopnea, wheezing, stridor, hemoptysis GASTROINTESTINAL:abdominal pain Absent: abdominal distension, nausea, vomiting, diarrhea, constipation, melena, hematochezia GENITOURINARY: Absent: dysuria, frequency, urgency, hesitancy, hematuria, flank pain, genital pain MUSCULOSKELETAL: Absent: myalgia, arthralgia, joint swelling, back pain, neck pain SKIN: Absent: rash, itching, pallor HEMATOLOGIC/IMMUNOLOGIC: Absent: easy bleeding, easy bruising, lymphadenopathy, frequent infections ENDOCRINE: Absent: unexplained weight gain, unexplained weight loss, heat intolerance, cold intolerance NEUROLOGIC: Absent: headache, focal weakness or paresthesias, dizziness, unsteady gait, seizure, mental status changes, bladder or bowel incontinence PSYCHIATRIC: Absent: anxiety, depression, suicidal or homicidal ideation, hallucinations. PHYSICAL EXAMINATION Vital Signs - 24 hr 07/04/19 07/04/19 07/05/19 22:51 23:10 05:42 Temperature 97.9 F 98.3 F 97.9 F Pulse Rate 98 H Pulse Rate [ 84 76 Left Apical] Respiratory 20 16 17 Rate Blood Pressure 137/76 Blood Pressure 126/56 L 136/78 [Right Arm] O2 Sat by Pulse 96 95 95 Oximetry (%) GENERAL: Awake, alert, and fully oriented, in mild distress. HEAD: Normal with no signs of trauma. EYES: Pupils equal, round and reactive to light, extraocular movements intact, sclera anicteric, conjunctiva clear. No lid lag. EARS, NOSE, THROAT: oropharynx clear without exudates. dry mucous membranes. NECK: Normal range of motion, supple without lymphadenopathy, JVD, or masses. LUNGS: Breath sounds equal, clear to auscultation bilaterally. No wheezes, and no crackles. No accessory muscle use. HEART: Regular rate and rhythm, normal S1 and S2 without murmur, rub or gallop. ABDOMEN: Soft, diffuse tenderness but more significant in LLQ, not distended, normoactive bowel sounds, no guarding, no rebound, no masses. No hepatomegaly or splenomegaly. MUSCULOSKELETAL: Normal range of motion at all joints. No bony deformities or tenderness. No CVA tenderness. UPPER EXTREMITIES: 2+ pulses, warm, well-perfused. No cyanosis. No clubbing. No peripheral edema. LOWER EXTREMITIES: 2+ pulses, warm, well-perfused. No calf tenderness. No peripheral edema. PSYCHIATRIC: Cooperative. Good eye contact. Appropriate mood and affect. Laboratory Results - last 24 hr 07/05/19 07/05/19 07/05/19 00:29 00:29 00:29 WBC 9.3 RBC 5.61 H Hgb 15.8 Hct 48.1 MCV 85.7 MCH 28.2 MCHC 32.9 RDW 13.9 Plt Count No Result Required. MPV 9.4 Absolute Neuts (auto) 7.5 Neutrophils % 80.2 Lymphocytes % 9.6 D Monocytes % 9.8 Eosinophils % 0.1 D Basophils % 0.3 Nucleated RBC % 0 PT with INR INR Sodium Cancelled Potassium Cancelled Chloride Cancelled Carbon Dioxide Cancelled Anion Gap Cancelled BUN Cancelled Creatinine Cancelled Est GFR (CKD-EPI)AfAm Cancelled Est GFR (CKD-EPI)NonAf Cancelled Random Glucose Cancelled Lactic Acid 0.9 Calcium Cancelled Magnesium Cancelled Total Bilirubin Cancelled AST Cancelled ALT Cancelled Alkaline Phosphatase Cancelled Creatine Kinase Troponin I Total Protein Cancelled Albumin Cancelled Lipase Cancelled Urine Color Urine Appearance Urine pH Ur Specific [place] Urine Protein Urine Glucose (UA) Urine Ketones Urine Blood Urine Nitrite Urine Bilirubin Urine Urobilinogen Ur Leukocyte Esterase 07/05/19 07/05/19 07/05/19 00:53 00:53 01:07 WBC RBC Hgb Hct MCV MCH MCHC RDW Plt Count MPV Absolute Neuts (auto) Neutrophils % Lymphocytes % Monocytes % Eosinophils % Basophils % Nucleated RBC % PT with INR 14.40 H INR 1.22 H Sodium 138 Potassium 4.1 Chloride 107 Carbon Dioxide 23 Anion Gap 8 BUN 16.3 Creatinine 0.9 Est GFR (CKD-EPI)AfAm 99.24 Est GFR (CKD-EPI)NonAf 85.63 Random Glucose 120 H Lactic Acid Calcium 8.3 L Magnesium 2.2 Total Bilirubin 0.4 AST 19 ALT 25 Alkaline Phosphatase 148 H Creatine Kinase 80 Troponin I < 0.02 Total Protein 6.9 Albumin 3.7 Lipase 36 L Urine Color Yellow Urine Appearance Clear Urine pH 5.5 Ur Specific [place] 1.023 Urine Protein Negative Urine Glucose (UA) Negative Urine Ketones Trace H Urine Blood Negative Urine Nitrite Negative Urine Bilirubin Negative Urine Urobilinogen 1.0 Ur Leukocyte Esterase Negative ASSESSMENT/PLAN: 69 year old male with PMH seizure disorder, RLE DVT (s/p IVC filter 2/2 seizure medication), venous insufficiency, diverticulitis, appendectomy, 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 admitted for partial SBO. Partial SBO 2/2 adhesions based on previous hx NPO bowel rest NGT if vomiting morphine for pain repeat CT for reeval Surgical consult Dr Berrios as he has seen him in the past. D5NS @83cc/hr. D5 is added due to NPO status monitor lytes and replete PRN zofran IV for nausea /vomiting if present Seizure disorder resuming home meds monitor seizure med levels ordered Incidental renal and adrenal lesion can follow as o/p for further evaluation DVT hep subQ Visit type - Emergency Visit Emergency Visit: Yes ED Registration Date: 07/05/19 Care time: The patient presented to the Emergency Department on the above date and was hospitalized for further evaluation of their emergent condition. - New Patient This patient is new to me today: Yes Date on this admission: 07/05/19 - Critical Care Critical Care patient: No ATTENDING PHYSICIAN STATEMENT I saw and evaluated the patient. I reviewed the resident's note and discussed the case with the resident. I agree with the resident's findings and plan as documented. SUBJECTIVE: OBJECTIVE: ASSESSMENT AND PLAN:
[2019-07-05] MEDS: DEXTROSE 5%-LACTATED RINGERS 1,000 ML IV SCH ×2 (06:14→15:06)
[2019-07-05 07:35] VITALS: BMI 27.7
[2019-07-05] MEDS ORDERED: PHENobarbital SODIUM 65 MG/1 ML VIAL IVPB ONE (08:00)
--- NOTE | 2019-07-05 08:51 | CONSULT ---
- Consultation REQUESTING PROVIDER: CONSULT REQUEST: We have been asked to surgically evaluate this patient for sbo PCP:Romi Siddiqui NP HISTORY OF PRESENT ILLNESS: 69yo presented to the ED with complaints of diffuse abd pain x [address] abd/pel showed partial SBO. Pt denies n/v, fever, chills. Pt states his last BM was yesterday morning before the pain started. Pt denies any BM or flatus since. Pt states he was last in the hospital a couple years ago for SBO and was treated conservatively for sbo with NGT. Pt did have lysis of adhesions about 20 years ago for sbo in the past. Pt states the abd pain is about the same since yesterday. PMHx: Epilepsy PSHx: Hernia repair, Ex-lap with JAEL, Appendectomy Home Medications Medication Instructions Recorded Phenytoin Na Extended [Dilantin -] 200 mg PO BID 11/03/14 Phenobarbital 250 mg PO AM 03/27/19 Phenobarbital 500 mg PO HS 03/27/19 Levetiracetam 500 mg PO DAILY 07/05/19 Allergies Allergy/AdvReac Type Severity Reaction Status Date / Time No Known Allergies Allergy Verified 07/04/19 22:51 REVIEW OF SYSTEMS: CONSTITUTIONAL: Absent: fever, chills, diaphoresis, generalized weakness, malaise, loss of appetite, weight change CARDIOVASCULAR: Absent: chest pain, syncope, palpitations, irregular heart rate, lightheadedness , peripheral edema RESPIRATORY: Absent: cough, shortness of breath, dyspnea with exertion, wheezing, stridor, hemoptysis GENITOURINARY: Absent: dysuria, frequency, urgency, hesitancy, hematuria, flank pain, genital pain MUSCULOSKELETAL: Absent: myalgia, arthralgia, joint swelling, back pain, neck pain SKIN: Absent: rash, itching, pallor PHYSICAL EXAM: GENERAL: Awake, alert, and fully oriented, in no acute distress. HEAD: Normal with no signs of trauma. EYES: PERRL, sclera anicteric, conjunctiva clear. NECK: Normal ROM, supple without lymphadenopathy, JVD, or masses. LUNGS: Clear to auscultation bilat anteriorly. No wheezes, and no crackles. No accessory muscle use. HEART: Regular rate and rhythm. No murmurs ABDOMEN: Soft, Moderately distended, with moderate diffuse abd pain, healed ex- lap and appendectomy incisions, no guarding, no rebound, no masses. No organomegaly. MUSCULOSKELETAL: Normal ROM at all joints. No bony deformities or tenderness. No CVA tenderness. NEUROLOGICAL: Normal speech, gait not observed. PSYCH: Cooperative. Good eye contact. Appropriate mood and affect. SKIN: Warm, dry, normal turgor, no rashes or lesions noted. Vital Signs Temperature 98.0 F 07/05/19 07:24 Pulse Rate 74 07/05/19 07:24 Respiratory Rate 20 07/05/19 07:24 Blood Pressure 112/63 07/05/19 07:24 O2 Sat by Pulse Oximetry (%) 98 07/05/19 07:24 Lab Results WBC 9.3 K/mm3 (4.0-10.0) 07/05/19 00:29 RBC 5.61 M/mm3 (4.00-5.60) H 07/05/19 00:29 Hgb 15.8 GM/dL (11.7-16.9) 07/05/19 00:29 Hct 48.1 % (35.4-49) 07/05/19 00:29 MCV 85.7 fl (80-96) 07/05/19 00:29 MCHC 32.9 g/dl (32.0-35.9) 07/05/19 00:29 RDW 13.9 % (11.9-15.9) 07/05/19 00:29 Plt Count No Result Required. 07/05/19 00:29 Sodium 138 mmol/L (136-145) 07/05/19 01:07 Potassium 4.1 mmol/L (3.5-5.1) 07/05/19 01:07 Chloride 107 mmol/L (98-107) 07/05/19 01:07 Carbon Dioxide 23 mmol/L (21-32) 07/05/19 01:07 Anion Gap 8 MMOL/L (8-16) 07/05/19 01:07 BUN 16.3 mg/dL (7-18) 07/05/19 01:07 Creatinine 0.9 mg/dL (0.55-1.3) 07/05/19 01:07 Random Glucose 120 mg/dL (74-106) H 07/05/19 01:07 Calcium 8.3 mg/dL (8.5-10.1) L 07/05/19 01:07 INR 1.22 (0.83-1.09) H 07/05/19 00:53 Problem List - Problems (1) Partial small bowel obstruction Assessment/Plan: Plan -Would continue to treat conservatively with NPO, IV fluids. -Discussed possiblity of NGT with pt, but will hold off unless pt fails to progress or develops vomiting. -serial abd exams and abd x-rays -oob/ambulate -dvt ppx -gi ppx Case discussed with Dr. Berrios who agrees with plan Code(s): K56.69 - OTHER INTESTINAL OBSTRUCTION * DO NOT USE *
[2019-07-05] MEDS ORDERED: FLU VACCINE QUAD 60 MCG/0.5 ML (MDV 19-20) IM ONE (09:00)
[2019-07-05] MEDS ORDERED: levETIRAcetam 500 MG TABLET (FP) PO SCH (10:00)
[2019-07-05] MEDS ORDERED: PHENYTOIN NA EXTENDED 100 MG CAPSULE (FP) PO SCH (10:00)
[2019-07-05] MEDS ORDERED: PHENobarbital SODIUM 130 MG/1 ML VIAL IV SCH ×2 (10:00→22:00)
[2019-07-05] MEDS: PHENYTOIN SODIUM 100 MG/2 ML VIAL IVPB SCH ×2 (11:16→21:44)
--- NOTE | 2019-07-05 12:05 | EKG ---
Test Reason : Blood Pressure : / mmHG Vent. Rate : 081 BPM Atrial Rate : 081 BPM P-R Int : 176 ms QRS Dur : 108 ms QT Int : 388 ms P-R-T Axes : 038 019 057 degrees QTc Int : 450 ms NORMAL SINUS RHYTHM NORMAL ECG WHEN COMPARED WITH ECG OF 27-JAN-2016 23:04, CRITERIA FOR INFERIOR INFARCT ARE NO LONGER PRESENT Confirmed by WADE FOSTER MD ([id number]) on 07/05/2019 12:04:30 PM Referred By: Confirmed By:WADE FOSTER MD
[2019-07-05] MEDS: levETIRAcetam 500 MG/5 ML INJECTION VIAL IVPB SCH ×2 (12:07→21:43)
[2019-07-05] MEDS ORDERED: MORPHINE SULFATE 2 MG/ML VIAL IVPUSH PRN (12:59)
[2019-07-05] MEDS: HEPARIN NA (PORCINE) 5,000 UNITS/ML 1ML VIAL SQ SCH ×2 (14:38→21:46)
[2019-07-06] MEDS: HEPARIN NA (PORCINE) 5,000 UNITS/ML 1ML VIAL SQ SCH ×3 (05:13→21:39)
[2019-07-06] MEDS ORDERED: PT OWN MED DRAWER 7, Y5N ONE (07:01)
--- NOTE | 2019-07-06 08:38 | PN ---
Progress Note (short form) - Note Progress Note: 69 yr old with history of recurrent SBO, feeling slightly better today, reports that he had flatus yesterday. Exam soft minimal tenderness in the lower quadrants A/P Partial SBO Continue conservative management Scheduled forfollow up CT scan today
[2019-07-06 10:40] LABS: BASO % 0.3 % (0-2.0); HEMATOCRIT 38.9 % (35.4-49); HEMOGLOBIN 13.8 GM/dL (11.7-16.9); LYMPH % 18.4 % (8-40); MCH 29.9 pg (25.7-33.7); MCHC 35.5 g/dl (32.0-35.9); MEAN CELL VOLUME 84.1 fl (80-96); MEAN PLT VOLUME 9.4 fl (7.5-11.1); NEUT % 67.3 % (42.8-82.8); PLATELET COUNT 130 K/MM3 (134-434); RBC 4.62 M/mm3 (4.00-5.60); RDW 13.3 % (11.9-15.9); WHITE BLOOD COUNT 5.5 K/mm3 (4.0-10.0)
[2019-07-06] MEDS: levETIRAcetam 500 MG/5 ML INJECTION VIAL IVPB SCH ×2 (10:51→21:39)
[2019-07-06 11:20] LABS: ALBUMIN 3.5 g/dl (3.4-5.0); BILIRUBIN,TOTAL 0.4 mg/dL (0.2-1); BLOOD UREA NITROGEN 10.2 mg/dL (7-18); CALCIUM 8.1 mg/dL (8.5-10.1); CREATININE 0.8 mg/dL (0.55-1.3); MAGNESIUM 2.1 mg/dL (1.8-2.4); PHOSPHOROUS 2.1 mg/dL (2.5-4.9); POTASSIUM 4.1 mmol/L (3.5-5.1); TOT PROT 7.2 g/dl (6.4-8.2)
[2019-07-06] MEDS: PHENYTOIN SODIUM 100 MG/2 ML VIAL IVPB SCH ×2 (11:49→21:39)
--- NOTE | 2019-07-06 13:36 | PN ---
Physical Exam: SUBJECTIVE: Patient seen and examined OBJECTIVE: for abd ct scan today. results pending. 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 He was found to have a partial SBO, and currently maintains NPO. Vital Signs Period Temp Pulse Resp BP Sys/Caal Pulse Ox Last 24 Hr 98.4 F-98.8 F 90-98 20-20 117-154/64-79 98 GENERAL: The patient is awake, alert, and fully oriented, in no acute distress. HEAD: Normal with no signs of trauma. EYES: PERRL, extraocular movements intact, sclera anicteric, conjunctiva clear. No ptosis. ENT: Ears normal, nares patent, oropharynx clear without exudates, moist mucous membranes. NECK: Trachea midline, full range of motion, supple. LUNGS: Breath sounds equal, clear to auscultation bilaterally HEART: Regular rate and rhythm ABDOMEN: large surgical scars on abdomen, healed. s/p abdominal surgeries in past. EXTREMITIES: no edema. NEUROLOGICAL: Normal speech, gait not observed. PSYCH: Normal mood, normal affect. SKIN: Warm, dry, normal turgor, no rashes or lesions noted Laboratory Results - last 24 hr 07/05/19 07/06/19 07/06/19 00:53 10:11 10:11 WBC 5.5 RBC 4.62 Hgb 13.8 Hct 38.9 D MCV 84.1 MCH 29.9 MCHC 35.5 RDW 13.3 Plt Count 130 L MPV 9.4 Absolute Neuts (auto) 3.7 Neutrophils % 67.3 Lymphocytes % 18.4 D Monocytes % 14.0 H Eosinophils % 0.0 D Basophils % 0.3 Nucleated RBC % 0 Sodium 137 Potassium 4.1 Chloride 106 Carbon Dioxide 24 Anion Gap 7 L BUN 10.2 Creatinine 0.8 Est GFR (CKD-EPI)AfAm 104.17 Est GFR (CKD-EPI)NonAf 89.88 Random Glucose 90 Calcium 8.1 L Phosphorus 2.1 L Magnesium 2.1 Total Bilirubin 0.4 AST 13 L ALT 21 Alkaline Phosphatase 145 H Total Protein 7.2 Albumin 3.5 Phenobarbital 44 H Active Medications Generic Name Dose Route Start Last Admin Trade Name Freq PRN Reason Stop Dose Admin Heparin Sodium (Porcine) 5,000 unit 07/05/19 14:00 07/06/19 05:13 Heparin - SQ 5,000 unit TID MADHURI Administration Dextrose/Lactated Ringer's 1,000 mls @ 83 mls/hr 07/05/19 06:00 07/05/19 15: 06 D5-Lr - IV 83 mls/hr ASDIR MADHURI Administration Levetiracetam 500 mg 07/05/19 10:00 07/06/19 10:51 Keppra Injection - IVPB 500 mg BID MADHURI Administration Morphine Sulfate 0.5 mg 07/05/19 12:59 07/06/19 10:51 Morphine Sulfate IVPUSH 0.5 mg Q4H PRN Administration PAIN LEVEL 7 - 10 Phenobarbital 260 mg 07/05/19 10:00 Phenobarbital Injection - IV DAILY MADHURI Phenobarbital 455 mg 07/05/19 22:00 Phenobarbital Injection - IV HS MADHURI Phenytoin Sodium 200 mg 07/05/19 10:00 07/06/19 11:49 Dilantin Injection - IVPB 200 mg BID MADHURI Administration ASSESSMENT/PLAN: Problem List - Problems (1) Partial small bowel obstruction Assessment/Plan: patient with history of recurrent SBO, feeling slightly better today, reports that he had flatus and a BM Exam with soft minimal tenderness in the lower quadrants. Per surgery, continue conservative management Scheduled for follow up CT scan to further evaluate maintain npo Code(s): K56.69 - OTHER INTESTINAL OBSTRUCTION * DO NOT USE * (2) Seizure disorder Assessment/Plan: continue medications Code(s): G40.909 - EPILEPSY, UNSP, NOT INTRACTABLE, WITHOUT STATUS EPILEPTICUS (3) DVT prophylaxis Assessment/Plan: ambulation on heparin Code(s): QJR8137 - (4) Prophylactic measure Assessment/Plan: fen d5 LR monitor electrolytes and replete npo, initiate diet per GI full code Code(s): Z29.9 - ENCOUNTER FOR PROPHYLACTIC MEASURES, UNSPECIFIED Visit type - Emergency Visit Emergency Visit: Yes ED Registration Date: 07/05/19 Care time: The patient presented to the Emergency Department on the above date and was hospitalized for further evaluation of their emergent condition. - New Patient This patient is new to me today: No - Critical Care Critical Care patient: No - Discharge Referral Referred to [facility] Med P.C.: No
[2019-07-06] MEDS: DEXTROSE 5%-LACTATED RINGERS 1,000 ML IV SCH (16:25)
[2019-07-07] MEDS: HEPARIN NA (PORCINE) 5,000 UNITS/ML 1ML VIAL SQ SCH ×3 (07:10→23:10)
[2019-07-07 09:14] LABS: BASO % 0.4 % (0-2.0); HEMATOCRIT 38.3 % (35.4-49); HEMOGLOBIN 13.8 GM/dL (11.7-16.9); MCH 30.4 pg (25.7-33.7); MCHC 36.2 g/dl (32.0-35.9); MEAN PLT VOLUME 9.8 fl (7.5-11.1); MONO % 14.5 % (3.8-10.2); NEUT % 69.1 % (42.8-82.8); PLATELET COUNT 129 K/MM3 (134-434); RBC 4.56 M/mm3 (4.00-5.60); RDW 13.6 % (11.9-15.9); WHITE BLOOD COUNT 6.1 K/mm3 (4.0-10.0)
[2019-07-07] MEDS: levETIRAcetam 500 MG/5 ML INJECTION VIAL IVPB SCH ×2 (09:45→23:10)
[2019-07-07] MEDS: PHENYTOIN SODIUM 100 MG/2 ML VIAL IVPB SCH ×2 (09:45→23:09)
[2019-07-07 09:46] LABS: ALBUMIN 3.8 g/dl (3.4-5.0); BILIRUBIN,TOTAL 0.8 mg/dL (0.2-1); BLOOD UREA NITROGEN 8.5 mg/dL (7-18); CALCIUM 8.5 mg/dL (8.5-10.1); CREATININE 0.8 mg/dL (0.55-1.3); MAGNESIUM 1.9 mg/dL (1.8-2.4); POTASSIUM 3.5 mmol/L (3.5-5.1); TOT PROT 7.2 g/dl (6.4-8.2)
[2019-07-07] MEDS: DEXTROSE 5%-LACTATED RINGERS 1,000 ML IV SCH (09:47)
--- NOTE | 2019-07-07 16:58 | PN ---
Physical Exam: SUBJECTIVE: Patient seen and examined at the bedside. 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 He was found to have a partial SBO, and currently maintains NPO. imaging: abdomen ct/pelvis with contrast: improvement in dilated small bowel loops since 07/05/19, remains mild dilatation. contrast does fill these loops as well as the colon. this appearance suggests a low grade sbo or focal ileus. Vital Signs Period Temp Pulse Resp BP Sys/Caal Pulse Ox Last 24 Hr 98 F-98.5 F 80-90 19-20 126-140/70-96 98 GENERAL: The patient is awake, alert, and fully oriented, in no acute distress. HEAD: Normal with no signs of trauma. EYES: PERRL, extraocular movements intact, sclera anicteric, conjunctiva clear. No ptosis. ENT: Ears normal, nares patent, oropharynx clear without exudates, moist mucous membranes. NECK: Trachea midline, full range of motion, supple. LUNGS: Breath sounds equal, clear to auscultation bilaterally HEART: Regular rate and rhythm ABDOMEN: large surgical scars on abdomen, healed. s/p abdominal surgeries in past. EXTREMITIES: no edema. NEUROLOGICAL: Normal speech, gait not observed. PSYCH: Normal mood, normal affect. SKIN: Warm, dry, normal turgor, no rashes or lesions noted Laboratory Results - last 24 hr 07/07/19 07/07/19 07:30 07:30 WBC 6.1 RBC 4.56 Hgb 13.8 Hct 38.3 MCV 84.0 MCH 30.4 MCHC 36.2 H RDW 13.6 Plt Count 129 L MPV 9.8 Absolute Neuts (auto) 4.3 Neutrophils % 69.1 Lymphocytes % 16.0 Monocytes % 14.5 H Eosinophils % 0.0 Basophils % 0.4 Nucleated RBC % 0 Sodium 138 Potassium 3.5 Chloride 106 Carbon Dioxide 23 Anion Gap 9 BUN 8.5 Creatinine 0.8 Est GFR (CKD-EPI)AfAm 104.17 Est GFR (CKD-EPI)NonAf 89.88 Random Glucose 87 Calcium 8.5 Magnesium 1.9 Total Bilirubin 0.8 AST 18 ALT 21 Alkaline Phosphatase 140 H Total Protein 7.2 Albumin 3.8 Active Medications Generic Name Dose Route Start Last Admin Trade Name Carl PRN Reason Stop Dose Admin Heparin Sodium (Porcine) 5,000 unit 07/05/19 14:00 07/07/19 14:26 Heparin - SQ 5,000 unit TID MADHURI Administration Dextrose/Lactated Ringer's 1,000 mls @ 83 mls/hr 07/05/19 06:00 07/07/19 09: 47 D5-Lr - IV 83 mls/hr ASDIR MADHURI Administration Levetiracetam 500 mg 07/05/19 10:00 07/07/19 09:45 Keppra Injection - IVPB 500 mg BID MADHURI Administration Morphine Sulfate 0.5 mg 07/05/19 12:59 07/06/19 10:51 Morphine Sulfate IVPUSH 0.5 mg Q4H PRN Administration PAIN LEVEL 7 - 10 Phenobarbital 260 mg 07/05/19 10:00 Phenobarbital Injection - IV DAILY MADHURI Phenobarbital 455 mg 07/05/19 22:00 Phenobarbital Injection - IV HS MADHURI Phenytoin Sodium 200 mg 07/05/19 10:00 07/07/19 09:45 Dilantin Injection - IVPB 200 mg BID MADHURI Administration ASSESSMENT/PLAN: Problem List - Problems (1) Partial small bowel obstruction Assessment/Plan: patient with history of recurrent SBO, feeling slightly better today, reports that he had flatus and a another BM, soft abdomen ct/pelvis with contrast: improvement in dilated small bowel loops since 07/05/19, remains mild dilatation. contrast does fill these loops as well as the colon. this appearance suggests a low grade sbo or focal ileus. diet per surgery. Code(s): K56.69 - OTHER INTESTINAL OBSTRUCTION * DO NOT USE * (2) Seizure disorder Assessment/Plan: continue medications Code(s): G40.909 - EPILEPSY, UNSP, NOT INTRACTABLE, WITHOUT STATUS EPILEPTICUS (3) DVT prophylaxis Assessment/Plan: ambulation on heparin Code(s): CNC4171 - (4) Prophylactic measure Assessment/Plan: fen d5 LR monitor electrolytes and replete npo, initiate diet per GI full code Code(s): Z29.9 - ENCOUNTER FOR PROPHYLACTIC MEASURES, UNSPECIFIED Visit type - Emergency Visit Emergency Visit: Yes ED Registration Date: 07/05/19 Care time: The patient presented to the Emergency Department on the above date and was hospitalized for further evaluation of their emergent condition. - New Patient This patient is new to me today: No - Critical Care Critical Care patient: No - Discharge Referral Referred to [facility] Med P.C.: No
[2019-07-08] MEDS: HEPARIN NA (PORCINE) 5,000 UNITS/ML 1ML VIAL SQ SCH ×3 (06:14→22:02)
[2019-07-08] MEDS: DEXTROSE 5%-LACTATED RINGERS 1,000 ML IV SCH (06:14)
[2019-07-08 08:13] LABS: ALBUMIN 3.6 g/dl (3.4-5.0); BILIRUBIN,TOTAL 0.6 mg/dL (0.2-1); BLOOD UREA NITROGEN 8.5 mg/dL (7-18); CALCIUM 8.3 mg/dL (8.5-10.1); CREATININE 0.8 mg/dL (0.55-1.3); MAGNESIUM 2.1 mg/dL (1.8-2.4)
[2019-07-08 08:14] LABS: BASO % 0.3 % (0-2.0); HEMATOCRIT 37.4 % (35.4-49); HEMOGLOBIN 13.4 GM/dL (11.7-16.9); LYMPH % 19.2 % (8-40); MCH 29.9 pg (25.7-33.7); MCHC 35.9 g/dl (32.0-35.9); MEAN CELL VOLUME 83.3 fl (80-96); MEAN PLT VOLUME 9.9 fl (7.5-11.1); NEUT % 64.5 % (42.8-82.8); PLATELET COUNT 128 K/MM3 (134-434); RBC 4.49 M/mm3 (4.00-5.60); RDW 13.4 % (11.9-15.9); WHITE BLOOD COUNT 4.9 K/mm3 (4.0-10.0)
[2019-07-08] MEDS ORDERED: PHENYTOIN NA EXTENDED 100 MG CAPSULE (FP) PO SCH (11:00)
[2019-07-08] MEDS: levETIRAcetam 500 MG TABLET (FP) PO SCH ×2 (11:04→22:02)
--- NOTE | 2019-07-08 12:45 | CONSULT ---
Consult - text type - Consultation Consultation Note: NEUROLOGY CONSULTATION is greatly appreciated: Events reviewed, patient examined. 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 Wee-controlled for many years on Dilantin (200 mg Q12) and Primidone (250 q AM and 500 mg q PM). Had breakthrough seizure about 2 years ago when admitted here with SBO and Levetiracetam 500 mg q 12 H was added. Also had breakthrough when Dilantin changed to generic prep in past. Now admitted with SBO. Given clear liquids and oral meds today. Labs: DPH level=10.2 mcg%; PB level=44 mcg%. INR=1.22 NOELLE: No bruits. Cor reg. Neg Yasmin's NEURO: MS/Speech: Normal CN II-XII: normal without Nystagmus Motor: No drift or tremor. Normal strength, tone, bulk. Normal reflexes except absent AJ's. Toes downgoing Coord: No FTN Dystaxia Sensory: Decreased vibraton feet, Normal at ankles. Romberg - Gait: Normal IMP: Non-focal neurological exam sig for a mild, predominately sensory, peripheral neuropathy (possible due to chronic phenytoin Rx). 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 Plan: Continue Dilantin 200 mg q12 H (Patient may take his branded meds from home) Change Phenobarb to Primidone (250 qAM and 500mg q PM). Continue Levetiracetam 500 mg q12 H OK to give all meds PO now. Check B12, Folic acid levels. Continue B vitamin supplementation at home Neuro F/U as out patient. Thank yo very much, Dany Melara MD
[2019-07-08] MEDS ORDERED: PRIMIDONE 250 MG TABLET PO SCH ×3 (14:00→22:00)
--- NOTE | 2019-07-08 16:05 | PN ---
Physical Exam: SUBJECTIVE: Patient seen and examined at the bedside. 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 He was found to have a partial SBO on admission. imaging: abdomen ct/pelvis with contrast: improvement in dilated small bowel loops since 07/05/19, remains mild dilatation. contrast does fill these loops as well as the colon. this appearance suggests a low grade sbo or focal ileus. 24 hrs passing gas, having BMs w/o nausea or vomiting. tolerating clears, advance to full liquids, and monitor. Vital Signs Period Temp Pulse Resp BP Sys/Caal Pulse Ox Last 24 Hr 98.5 F-98.8 F 84-93 18 133-141/76-85 GENERAL: The patient is awake, alert, and fully oriented, in no acute distress. HEAD: Normal with no signs of trauma. EYES: PERRL, extraocular movements intact, sclera anicteric, conjunctiva clear. No ptosis. ENT: Ears normal, nares patent, oropharynx clear without exudates, moist mucous membranes. NECK: Trachea midline, full range of motion, supple. LUNGS: Breath sounds equal, clear to auscultation bilaterally HEART: Regular rate and rhythm ABDOMEN: large surgical scars on abdomen, healed. s/p abdominal surgeries in past. EXTREMITIES: no edema. NEUROLOGICAL: Normal speech, gait not observed. PSYCH: Normal mood, normal affect. SKIN: Warm, dry, normal turgor, no rashes or lesions noted Laboratory Results - last 24 hr 07/08/19 07/08/19 06:15 06:15 WBC 4.9 RBC 4.49 Hgb 13.4 Hct 37.4 MCV 83.3 MCH 29.9 MCHC 35.9 RDW 13.4 Plt Count 128 L MPV 9.9 Absolute Neuts (auto) 3.2 Neutrophils % 64.5 Lymphocytes % 19.2 Monocytes % 16.0 H Eosinophils % 0.0 Basophils % 0.3 Nucleated RBC % 0 Sodium 137 Potassium 4.0 Chloride 106 Carbon Dioxide 25 Anion Gap 6 L BUN 8.5 Creatinine 0.8 Est GFR (CKD-EPI)AfAm 104.17 Est GFR (CKD-EPI)NonAf 89.88 Random Glucose 90 Calcium 8.3 L Magnesium 2.1 Total Bilirubin 0.6 AST 26 ALT 28 Alkaline Phosphatase 134 H Total Protein 7.0 Albumin 3.6 Active Medications Generic Name Dose Route Start Last Admin Trade Name Freq PRN Reason Stop Dose Admin Heparin Sodium (Porcine) 5,000 unit 07/05/19 14:00 07/08/19 06:14 Heparin - SQ 5,000 unit TID MADHURI Administration Dextrose/Lactated Ringer's 1,000 mls @ 83 mls/hr 07/05/19 06:00 07/08/19 06: 14 D5-Lr - IV Not Given ASDIR MADHURI Levetiracetam 500 mg 07/08/19 11:00 07/08/19 11:04 Keppra - PO 500 mg BID MADHURI Administration Morphine Sulfate 0.5 mg 07/05/19 12:59 07/06/19 10:51 Morphine Sulfate IVPUSH 0.5 mg Q4H PRN Administration PAIN LEVEL 7 - 10 Phenytoin Sodium 200 mg 07/08/19 11:00 07/08/19 11:05 Dilantin - PO Not Given BID MADHURI Primidone 500 mg 07/08/19 22:00 Mysoline - PO HS MADHURI Primidone 250 mg 07/09/19 07:00 Mysoline - PO AM MADHURI ASSESSMENT/PLAN: Problem List - Problems (1) Partial small bowel obstruction Assessment/Plan: patient with history of recurrent SBO, feeling slightly better today, reports that he had flatus and a another BM, soft abdomen ct/pelvis with contrast: improvement in dilated small bowel loops since 07/05/19, remains mild dilatation. contrast does fill these loops as well as the colon. this appearance suggests a low grade sbo or focal ileus. tolerating clears, no abdominal pain or bloating, passing flatus and having BMs. advance diet as tolerated. Code(s): K56.69 - OTHER INTESTINAL OBSTRUCTION * DO NOT USE * (2) Seizure disorder Assessment/Plan: on keppra 500 mg bid Primidone (250 qAM and 500mg q PM). on dilantin 200mg bid (patient takes his own home meds, he is allowed to, does not want to take ours as we have the generic form and could not tolerate generic dilantin in past per patient) Code(s): G40.909 - EPILEPSY, UNSP, NOT INTRACTABLE, WITHOUT STATUS EPILEPTICUS (3) DVT prophylaxis Assessment/Plan: ambulation on heparin Code(s): [id number] - (4) Prophylactic measure Assessment/Plan: fen monitor electrolytes and replete clears, advance to full liquids full code Code(s): Z29.9 - ENCOUNTER FOR PROPHYLACTIC MEASURES, UNSPECIFIED Visit type - Emergency Visit Emergency Visit: Yes ED Registration Date: 07/05/19 Care time: The patient presented to the Emergency Department on the above date and was hospitalized for further evaluation of their emergent condition. - New Patient This patient is new to me today: No - Critical Care Critical Care patient: No - Discharge Referral Referred to [facility] Med P.C.: No
[2019-07-08] MEDS: PHENYTOIN NA PO SCH (22:03)
[2019-07-09] MEDS: DEXTROSE 5%-LACTATED RINGERS 1,000 ML IV SCH (06:14)
[2019-07-09] MEDS: HEPARIN NA (PORCINE) 5,000 UNITS/ML 1ML VIAL SQ SCH (06:14)
[2019-07-09] MEDS ORDERED: PRIMIDONE 250 MG TABLET PO SCH ×3 (07:00→10:00)
[2019-07-09 07:20] LABS: BASO % 0.6 % (0-2.0); HEMATOCRIT 40.7 % (35.4-49); LYMPH % 17.3 % (8-40); MCH 28.6 pg (25.7-33.7); MCHC 34.3 g/dl (32.0-35.9); MEAN CELL VOLUME 83.4 fl (80-96); MEAN PLT VOLUME 9.3 fl (7.5-11.1); MONO % 15.5 % (3.8-10.2); NEUT % 66.6 % (42.8-82.8); PLATELET COUNT 109 K/MM3 (134-434); RBC 4.88 M/mm3 (4.00-5.60); RDW 13.4 % (11.9-15.9); WHITE BLOOD COUNT 4.7 K/mm3 (4.0-10.0)
[2019-07-09 07:53] LABS: ALBUMIN 3.8 g/dl (3.4-5.0); BILIRUBIN,TOTAL 0.5 mg/dL (0.2-1); BLOOD UREA NITROGEN 6.1 mg/dL (7-18); CALCIUM 8.6 mg/dL (8.5-10.1); CREATININE 0.9 mg/dL (0.55-1.3); MAGNESIUM 2.1 mg/dL (1.8-2.4); POTASSIUM 3.9 mmol/L (3.5-5.1); TOT PROT 7.5 g/dl (6.4-8.2)
--- NOTE | 2019-07-09 08:10 | PN ---
Progress Note (short form) - Note Progress Note: 69yo male being followed for PSBO vs ileus seen and examined at bedside with no complaints. He is tolerating full liquids, OOB without assistance and moved his bowels yesterday. He denies any Abdominal pain, fever, chills, N/V, CP or SOB. He would like to eat a regular diet and go home. Vital Signs Temp 98.6 F 07/09/19 06:00 Pulse 80 07/09/19 06:00 Resp 18 07/09/19 06:00 BP 152/81 07/09/19 06:00 Pulse Ox 97 07/08/19 21:00 Intake & Output 07/08/19 07/08/19 07/09/19 11:59 23:59 11:59 Intake Total 540 250 Balance 540 250 Weight 197 lb 9.6 oz Intake: IV 0 0 D5-Lr - 1,000 ml @ 83 mls 0 0 /hr IV ASDIR MADHURI Rx#: [id number] IVPB 0 0 Oral 540 250 Other: Voiding Method Toilet # Unmeasured Voids Void 1 1 Bowel Movement No No Weight Measurement Method Built in Bedscale CBC, BMP 07/09/19 06:49 07/09/19 06:49 PE: A&Ox3, NAD Unlabored resp on RA Abd: soft, NT, ND, no rebound or guarding, well healed midline scar. Abdominal CT 07/06 revealed dilated loops of colon with contrast in the colon suggestive of PSBO vs Ileus. Problem List - Problems (1) Partial small bowel obstruction Assessment/Plan: 69 yo male with resolving psbo vs ileus. -Regular diet -encourage OOB and IS -DVT anf GI prophylaxis -d/c planning for home today if he tolerates his regular diet. -Re consult surgery PRN Code(s): K56.69 - OTHER INTESTINAL OBSTRUCTION * DO NOT USE *
[2019-07-09] MEDS: levETIRAcetam 500 MG TABLET (FP) PO SCH (10:45)
[2019-07-09] MEDS: PHENYTOIN NA PO SCH (10:48)
--- NOTE | 2019-07-09 12:11 | DS ---
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 He was found to have a partial SBO on admission. imaging: abdomen ct/pelvis with contrast: improvement in dilated small bowel loops since 07/05/19, remains mild dilatation. contrast does fill these loops as well as the colon. this appearance suggests a low grade sbo or focal ileus. 24 hrs passing gas, having BMs w/o nausea or vomiting. tolerated regular diet. d/c home with outpatient follow up. cleared by surgery patient and concerned over imaging done here shows enlarged heart. patient given referral to follow up with [facility] as an outpatient. Vital Signs Period Temp Pulse Resp BP Sys/Caal Pulse Ox Last 24 Hr 98.5 F-98.9 F 76-93 18-18 131-153/66-85 97 PHYSICAL EXAM GENERAL: The patient is awake, alert, and fully oriented, in no acute distress. HEAD: Normal with no signs of trauma. EYES: PERRL, extraocular movements intact, sclera anicteric, conjunctiva clear. No ptosis. ENT: Ears normal, nares patent, oropharynx clear without exudates, moist mucous membranes. NECK: Trachea midline, full range of motion, supple. LUNGS: Breath sounds equal, clear to auscultation bilaterally HEART: Regular rate and rhythm ABDOMEN: large surgical scars on abdomen, healed. s/p abdominal surgeries in past. EXTREMITIES: no edema. NEUROLOGICAL: Normal speech, gait not observed. PSYCH: Normal mood, normal affect. SKIN: Warm, dry, normal turgor, no rashes or lesions noted LABS Laboratory Results - last 24 hr 07/09/19 07/09/19 06:49 06:49 WBC 4.7 RBC 4.88 Hgb 14.0 Hct 40.7 MCV 83.4 MCH 28.6 MCHC 34.3 RDW 13.4 Plt Count 109 L MPV 9.3 Absolute Neuts (auto) 3.2 Neutrophils % 66.6 Lymphocytes % 17.3 Monocytes % 15.5 H Eosinophils % 0.0 Basophils % 0.6 Nucleated RBC % 0 Sodium 138 Potassium 3.9 Chloride 106 Carbon Dioxide 23 Anion Gap 9 BUN 6.1 L Creatinine 0.9 Est GFR (CKD-EPI)AfAm 99.24 Est GFR (CKD-EPI)NonAf 85.63 Random Glucose 104 Calcium 8.6 Magnesium 2.1 Total Bilirubin 0.5 AST 72 H ALT 64 H Alkaline Phosphatase 151 H Total Protein 7.5 Albumin 3.8 Vitamin B12 644 Serum Folate 8 HOSPITAL COURSE: Date of Admission:07/05/19 Date of Discharge: 07/09/19 Minutes to complete discharge: 50 Discharge Summary Problems reviewed: Yes Reason For Visit: SMALL BOWEL OBSTRUCTION Current Active Problems Kidney mass (Acute) Partial small bowel obstruction (Acute) Prophylactic measure (Acute) Condition: Stable - Instructions Diet, Activity, Other Instructions: Continue regular diet. Please follow up with your primary care doctor within 3-5 days. We found that you had an enlarged heart on CT imaging. Please follow up with Dr. Macedo. Thank you for allowing us to care for you. Referrals: Dany Alberto MD [Staff Physician] - Zachery Dickson MD [Staff Physician] - ([facility]. call for appt.) Olayinka Berrios [Staff Physician] - Disposition: HOME - Home Medications Comprehensive Discharge Medication List: Ambulatory Orders Phenytoin Na Extended [Dilantin -] 200 mg PO BID 11/03/14 Levetiracetam 500 mg PO BID 07/05/19 Mysoline 250 mg PO AM 07/08/19 Mysoline 500 mg PO HS 07/08/19 Problem List - Problems (1) Partial small bowel obstruction Assessment/Plan: resolved passing gas, tolerating diet. no nausea or vomiting Code(s): K56.69 - OTHER INTESTINAL OBSTRUCTION * DO NOT USE * (2) Seizure disorder Assessment/Plan: on keppra 500 mg bid Primidone (250 qAM and 500mg q PM). on dilantin 200mg bid follow up with dr. alberto Code(s): G40.909 - EPILEPSY, UNSP, NOT INTRACTABLE, WITHOUT STATUS EPILEPTICUS (3) DVT prophylaxis Assessment/Plan: ambulation on heparin Code(s): ZMI5661 - (4) Prophylactic measure Assessment/Plan: discharge home Code(s): Z29.9 - ENCOUNTER FOR PROPHYLACTIC MEASURES, UNSPECIFIED This patient is new to me today: No Emergency Visit: Yes ED Registration Date: 07/05/19 Care time: The patient presented to the Emergency Department on the above date and was hospitalized for further evaluation of their emergent condition. Critical Care patient: No - Discharge Referral Referred to [facility] No
[2019-07-09 14:03] VITALS: BP 148/74; PULSE 79; TEMP 98.4
== END 2019-07-09 13:24 | disposition home or self-care (01) | DRG 389 ==
LOC: JER 22:42 → JERBED 07-05 05:25 → J6S 07-05 06:39
PROVIDERS: ADMIT Internal Medicine; ATTEND Nurse Practitioner Family
DX: K56.51 Intestinal adhesions [bands], with partial obstruction (principal); J98.11 Atelectasis; N28.89 Other specified disorders of kidney and ureter; K56.7 Ileus, unspecified; R10.32 Left lower quadrant pain
CPT/HCPCS: 36415; 74176-TC; 74177-TC; 80053; 80184; 80185; 81003; 82550; 82607; 82746; 83605; 83690; 83735; 84100; 84484; 85025; 85610; 93005; 93010; 97116-GP; 97161-GP; 99283-25; J0131; J1644; J7030; Q2036; Q9967